=== PATIENT | male | born 1980 | race Hispanic/Latino ===

== ENCOUNTER 2018-03-06 06:55 | Observation (INO) | payer OTHER ==
--- NOTE | 2018-03-06 08:31 | ED PDOC ---
Lower Extremity Pain/Injury Time Seen by Provider: 03/06/18 07:18 Chief Complaint (Nursing): Pain, Chronic Chief Complaint (Provider): left ankle injury History Per: Patient History/Exam Limitations: no limitations Onset/Duration Of Symptoms: Days (x1 week) Current Symptoms Are (Timing): Still Present Additional Complaint(s): Woodrow Mercer is a 37 year old male, with no significant past medical history , who presents to the emergency department complaining of left ankle pain onset x1 week ago. Patient was seen yesterday by Dr. Watson, he had an x-ray and MRI done and was recommended to present to the ED. Patient states Dr. Watson diagnosed him with a complete tear of left achilles tendon. Patient reports injury occurred while [place] was [place] [employer] [place] and landed on uneven ground. He has been taking Naproxen for pain. He denies any other medical complaints. PMD: Branch. Past Medical History Reviewed: Historical Data, Nursing Documentation, Vital Signs Vital Signs: Last Vital Signs Temp 98.4 F 03/06/18 07:07 Pulse 68 03/06/18 07:07 Resp 17 03/06/18 07:07 BP 124/78 03/06/18 07:07 Pulse Ox 96 03/06/18 07:07 - Medical History PMH: Gastritis Denies: Kidney Stones, Chronic Kidney Disease - Surgical History Surgical History: No Surg Hx - Family History Family History: States: Unknown Family Hx - Immunization History Hx Tetanus Toxoid Vaccination: No Hx Influenza Vaccination: No Hx Pneumococcal Vaccination: No - Home Medications Home Medications: Ambulatory Orders Medication Instructions Recorded Aspirin [Aspirin EC] 325 mg PO DAILY 03/06/18 Docusate [Colace] 100 mg PO BID PRN 03/06/18 Omeprazole [Omeprazole] 20 mg PO DAILY 03/06/18 Ondansetron HCl [Zofran] 4 mg PO .Q4-6 PRN 03/06/18 oxyCODONE/Acetaminophen [Percocet 1 tab PO .Q4-6 PRN 03/06/18 5/325 mg Tab] - Allergies Allergies/Adverse Reactions: Allergies Allergy/AdvReac Type Severity Reaction Status Date / Time No Known Allergies Allergy Verified 03/06/18 07:15 Review of Systems ROS Statement: Except As Marked, All Systems Reviewed And Found Negative Musculoskeletal: Positive for: Foot Pain (left ankle) Physical Exam - Reviewed Nursing Documentation Reviewed: Yes Vital Signs Reviewed: Yes - Physical Exam Appears: Positive for: No Acute Distress Head Exam: Positive for: ATRAUMATIC, NORMOCEPHALIC Skin: Positive for: Normal Color, Warm, Dry Eye Exam: Positive for: Normal appearance Neck: Positive for: Painless ROM Extremity: Positive for: Normal ROM (lower extremities), Other (Monk's test positive. Ecchymosis noted on posterior aspect of left foot.). Negative for: Deformity Neurologic/Psych: Positive for: Alert, Oriented. Negative for: Motor/Sensory Deficits - Laboratory Results Result Diagrams: 03/06/18 08:00 03/06/18 08:00 - ECG O2 Sat by Pulse Oximetry: 96 (RA) Pulse Ox Interpretation: Normal Medical Decision Making Medical Decision Making: Time: 07:18 Initial Impression: Left ankle injury, left achilles tendon Initial Plan: --Type and screen --EKG --BMP --CBC w/ differential --PTT --PT --Urinalysis --Reevaluation 07:40 -Consulted Dr. Watson who recommends urgent repair of the tendon and will admit under his own. ----- Scribe Attestation: Documented by Ciro Vogel, acting as a scribe for Lizbeth Stallworth MD. Provider Scribe Attestation: All medical record entries made by the Scribe were at my direction and personally dictated by me. I have reviewed the chart and agree that the record accurately reflects my personal performance of the history, physical exam, medical decision making, and the department course for this patient. I have also personally directed, reviewed, and agree with the discharge instructions and disposition. Disposition - Clinical Impression Clinical Impression: Ankle injury, Achilles tendon rupture - Patient ED Disposition Is Patient to be Admitted: Yes Discussed With DrHiwot: Brenden Watson Counseled Patient/Family Regarding: Studies Performed, Diagnosis - Disposition Disposition Time: 07:30 Condition: FAIR - Pt Status Changed To: Hospital Disposition Of: SDS- Endo,OR,Cath,IR - POA Present On Arrival: Falls Or Trauma
[2018-03-06 08:34] LABS: SQUAMOUS EPITHIAL < 1 /hpf (0-5); URINE BILIRUBIN NEGATIVE (NEGATIVE); URINE BLOOD NEGATIVE (NEGATIVE); URINE CLARITY CLEAR (Clear); URINE COLOR YELLOW (YELLOW); URINE GLUCOSE (UA) NEG (Normal); URINE LEUKOCYTE ESTERASE NEG Leu/uL (Negative); URINE PROTEIN NEGATIVE (NEGATIVE); URINE UROBILINOGEN 0.2-1.0 mg/dL (0.2-1.0)
[2018-03-06 08:46] LABS: BASO % 0.8 % (0.0-2.0); EOS # 0.1 K/uL (0.0-0.7); EOS % 2.2 % (0.0-4.0); HEMOGLOBIN 15.6 g/dL (12.0-18.0); LYMPH # 1.5 K/uL (1.0-4.3); LYMPH % 29.6 % (20.0-40.0); MEAN CELL VOLUME 87.6 fl (80.0-94.0); MEAN CORPUSCULAR HEMOGLOBIN 30.5 pg (27.0-31.0); MEAN CORPUSCULAR HGB CONC 34.8 g/dL (33.0-37.0); MONO # 0.3 K/uL (0.0-0.8); MONO % 6.4 % (0.0-10.0); NEUT # 3.1 K/uL (1.8-7.0); NRBC % 0.2 % (0.0-0.0); RBC 5.12 Mil/uL (4.40-5.90); RED CELL DISTRIBUTION WIDTH 12.7 % (11.5-14.5); WHITE BLOOD COUNT 5.2 K/uL (4.8-10.8)
[2018-03-06 08:52] LABS: PROTHROMBIN TIME 11.1 Seconds (9.8-13.1)
[2018-03-06 08:55] LABS: PARTIAL THROMBOPLASTIN TIME 37.9 Seconds (25.6-37.1)
[2018-03-06 09:01] LABS: BLOOD UREA NITROGEN 16 mg/dl (9-20); CALCIUM 9.2 mg/dL (8.4-10.2); GFR NON-AFRICAN AMERICAN > 60
[2018-03-06] MEDS ORDERED: Lactated Ringer's 1,000 ML IV ONE ×2 (11:20→15:08)
[2018-03-06] MEDS ORDERED: ceFAZolin IV 1 gm in Dextrose 2 GM/100 ML BAG IVPB ONE (11:24)
[2018-03-06] MEDS ORDERED: Propofol 10 mg/ml Inj (20 ML) ONE (11:25)
[2018-03-06] MEDS ORDERED: Midazolam 2 MG/2 ML VIAL ONE ×2 (11:25→12:44)
[2018-03-06] MEDS ORDERED: Succinylcholine 200 mg/10 ml Inj IV ONE (11:26)
--- NOTE | 2018-03-06 12:23 | CARD ---
APPROVED REPORT Date of service: 03/06/2018 EKG Measurement Heart [id number] <Conclusion> Normal sinus rhythm Normal ECG
[2018-03-06] MEDS ORDERED: Bupivacaine HCl 0.5% PF (30 ml) Inj ONE (12:46)
--- NOTE | 2018-03-06 13:18 | PCM.ANESB2 ---
Popliteal Nerve Block - Popliteal Nerve Block Date of Procedure: 03/06/18 Anesthesiologist: Leann Pre-Procedure Diagnosis: left achilles tendon repair Post-Procedure Diagnosis: left achilles tendon repair Procedure Performed: Popliteal Nerve Block Left - Procedure Popliteal Nerve Block: This procedure was explained to the patient that it is for post-operative pain management. Consent was obtained after a thorough discussion with the patient regarding the benefits and possible complications of local anesthetic block of the sciatic nerve at the popliteal level. The patient was brought to the operating room and standard monitors are applied. Time-out was held with the circulating nurse to confirm the correct surgery and the appropriate block. After applying oxygen by nasal cannula and administering IV Sedation, patient's operative leg was gently raised and supported and the groove in between the biceps femoris and vastus lateralis muscles was carefully palpated. The skin approximately 8cm above the popliteal crease was then marked. The ultrasound transducer was then applied to the posterior thigh approximately 8cm above the popliteal crease in the transverse plane and the sciatic nerve before its division was visualized lateral to the popliteal artery and in between the bicep femoris and semimembranosus/semitendinosus muscles. After identification, the lateral portion of the thigh was prepped with Betadine solution three times and Lidocaine 1% was injected subcutaneously for topical anesthesia. At this point, a # 21 gauge Stimuplex insulated 4 inch needle was inserted into pre-marked area and advanced in a perpendicular direction. The needle was inserted above the ultrasound transducer in-plane towards the sciatic nerve in a [id number] direction. Needle advancement was performed carefully under direct ultrasound visualization. Nerve stimulator was used and dorsiflexion of the _left____ foot was elicited at a current of __0.3___ MA. After repeated negative aspiration, ___5__cc of __0.5___ % __Bupivacaine was injected and this was flowed with __25____ cc of _0.5 % __Bupivacaine ___. Under ultrasound guidance the local anesthetics were observed surrounding sciatic nerve . The needle was removed intact and sterile dressing was applied. The patient tolerated the popliteal nerve block well with stable vital signs and was subsequently prepared for the surgery.
--- NOTE | 2018-03-06 15:04 | PCM.SURG1 ---
Surgeon's Initial Post Op Note - Surgeon's Notes Surgeon: Brenden Watson MD Certified Marine Mechanic: Enrique Mora MD; Ani Coleman DPM Type of Anesthesia: General Endo Pre-Operative Diagnosis: Left ankle achilles tendon rupture Operative Findings: see op report Post-Operative Diagnosis: same as pre-op Operation Performed: left ankle achilles tendon repair Specimen/Specimens Removed: none Estimated Blood Loss: EBL {In ML}: 5 Date of Surgery/Procedure: 03/06/18 Time of Surgery/Procedure: 12:30
[2018-03-06] MEDS ORDERED: Oxycodone/Acetaminophen 5/325 mg Tab PO PRN (15:05)
[2018-03-06 15:48] VITALS: RESP 18
[2018-03-06 17:45] VITALS: BP 111/60; PULSE 67; TEMP 97.5
--- NOTE | 2018-03-06 22:56 | OP ---
PROCEDURE DATE: 03/06/2018 ATTENDING PHYSICIAN: Brenden Watson MD. SENIOR SAS DEVELOPER: Enrique Mora MD. PREOPERATIVE DIAGNOSIS: Left complete Achilles tendon rupture. POSTOPERATIVE DIAGNOSIS: Left complete Achilles tendon rupture. PROCEDURES: 1. Left open Achilles tendon repair. 2. Extensive debridement of soft tissue. 3. Posterior splint placement. ANESTHESIA TYPE: General. ESTIMATED BLOOD LOSS: 50 mL. COMPLICATIONS: None. HISTORY: The patient presented to [facility] Emergency Room with acute Achilles tendon rupture. The patient was taken to the operating room. DESCRIPTION OF PROCEDURE: The patient was brought to preop holding area. A laterality sheet was completed confirming the patient's left ankle as the correct operative site. Informed consent was signed from the patient. The patient was taken to the OR. He underwent general anesthesia. He was given appropriate prophylactic antibiotics. He was placed prone on the operating room table. A padded tourniquet was applied to the patient's left thigh. The left ankle was draped and prepped in standard sterile manner. First, a timeout was completed confirming the patient's left ankle to be the corrective operative site. Using a #10 blade, a 6-cm incision was made just medial to the Achilles tendon, and the skin dissection was taken down with extensive hematoma that was evacuated. The guillermina-tenon was carefully dissected for later repair. There was complete rupture of Achilles tendon with extensive soft tissue trauma. Using a fresh blade and rongeur, extensive soft tissue debridement was performed. For fixation, we utilized #2 Ethibond sutures; and they were sutured in a [place] fashion on both ends, both stumps of the tendon, then with ankle. introduced degrees of plantar flexion and the knots were tied to approximate the torn edges of the Achilles tendon. The repair was reinforced with #1 Vicryl sutures. Afterwards, the guillermina-tenon was closed using 3-0 Vicryl sutures. Skin was closed in a standard sterile fashion. A sterile dressing was applied. Afterwards, the patient was placed in a posterior well-padded splint. The patient was extubated, placed supine on the stretcher, and transferred to the recovery room. POSTOP INSTRUCTIONS: Include nonweightbearing on left lower extremity. There were no complications of surgery. Dr. Enrique Mora is a board certified orthopedic surgeon who was present for the entirety of the case as his participation was crucial in the patient positioning, retraction of critical neurovascular structures, and successful completion of the surgery. Brenden Watson MD
--- NOTE | 2018-03-07 08:37 | CON ---
DATE: 03/06/2018 ER CONSULTATION CHIEF COMPLAINT: Left Achilles tendon rupture. HISTORY OF PRESENT ILLNESS: The patient is a 37-year-old male who reports a few days ago he was jumping on trampoline with his children, he felt a pop into his left Achilles. Since then, the patient has noticed progressive pain and swelling and difficulty bearing weight. The patient was seen by primary care doctor, underwent imaging. The patient reports he had progressive left ankle pain and swelling and also a tingling sensation in his toes. At that point, the patient presented to [facility] Emergency Room. He denied any other trauma or fall. Denies any loss of consciousness. Not in any acute distress. PHYSICAL EXAMINATION: EXTREMITIES: Examination of the patient's left ankle, there is extensive swelling and ecchymosis. Limited range of motion secondary to pain. Neurovascularly intact distally. ASSESSMENT AND PLAN: A 37-year-old male with left acute complete Achilles tendon rupture. Achilles tendon rupture treatment accepted to the patient due to the complete tendon rupture and difficulty bearing weight. I am recommending left open Achilles tendon repair. The patient will be admitted and will be taken to the operating room today for open fixation. Brenden Watson MD
[2018-03-08 15:46] VITALS: O2SAT 96
== END 2018-03-06 18:00 | disposition home or self-care (01) ==
LOC: H.ER 06:55 → H.ERHOLD 07:38
PROVIDERS: ADMIT Orthopaedic Surgery; ATTEND Orthopaedic Surgery
DX: S86.012A Strain of left Achilles tendon, initial encounter (principal); K29.70 Gastritis, unspecified, without bleeding; W17.89XA Other fall from one level to another, initial encounter; Y93.39 Activity, other involving climbing, rappelling and jumping off; Y92.830 Public park as the place of occurrence of the external cause
CPT/HCPCS: 27650; 64450; 80048; 81003; 82948; 85025; 85610; 85730; 86850; 86900; 93005; 99284; G0378; G8978; G8979; G8980; J0330; J0690; J1170; J2250; J2704; J2765; J3010; J7030; J7120